=== PATIENT | male | born 1990 | race American Indian/Alaskan Native ===

== ENCOUNTER 2021-09-03 19:47 | Emergency (ER) | payer MEDICAID ==
[2021-09-03] MEDS ORDERED: ZIPRASIDONE MESYLATE 20 MG VIAL IM ONE ×2 (20:07→20:32)
[2021-09-03] MEDS ORDERED: diphenhydrAMINE 50 MG/ML VIAL IM ONE (20:46)
[2021-09-03] MEDS ORDERED: LORazepam 2 MG/ML VIAL IM ONE (20:47)
--- NOTE | 2021-09-03 20:49 | Emergency Department Report ---
ED Psych HPI - General Chief Complaint: Psych Stated Complaint: ABNORMAL BEHAVIOR Time Seen by Provider: 09/03/21 20:03 Source: patient, EMS Mode of arrival: Stretcher - History of Present Illness Initial Comments: Patient presents with having a psychotic episode. Patient was outside a psych facility and he was eating leaves off the trees and climbing the tree. History is limited due to patient's condition - Related Data Previous Rx's Medication Instructions Recorded Last Taken Type Mineral Oil/Petrolatum,White 3.5 gm OD Q1HR PRN #1 oint...g. 10/09/19 Unknown Rx [Refresh Lacri-Lube Ointment] haloperidoL [Haldol] 2 mg PO TID #60 tab 10/09/19 Unknown Rx Allergies Allergy/AdvReac Type Severity Reaction Status Date / Time No Known Allergies Allergy Unverified 10/06/19 20:13 ED Review of Systems ROS: Stated complaint: ABNORMAL BEHAVIOR Other details as noted in HPI Comment: Unobtainable due to pts medical conditions ED Past Medical Hx - Past Medical History Previous Medical History?: Yes Hx Hypertension: Yes Hx Psychiatric Treatment: Yes - Surgical History Past Surgical History?: No - Social History Smoking Status: Current Every Day Smoker Substance Use Type: None - Medications Home Medications: Home Medications Medication Instructions Recorded Confirmed Last Taken Type Mineral Oil/Petrolatum,White 3.5 gm OD Q1HR PRN #1 oint...g. 10/09/19 Unknown Rx [Refresh Lacri-Lube Ointment] haloperidoL [Haldol] 2 mg PO TID #60 tab 10/09/19 Unknown Rx ED Physical Exam - General Limitations: Altered Mental Status General appearance: alert, in no apparent distress - Head Head exam: Present: atraumatic, normocephalic - Eye Eye exam: Present: normal appearance - ENT ENT exam: Present: mucous membranes moist - Neck Neck exam: Present: normal inspection - Respiratory Respiratory exam: Present: normal lung sounds bilaterally. Absent: respiratory distress - Cardiovascular Cardiovascular Exam: Present: regular rate, normal rhythm. Absent: systolic murmur, diastolic murmur, rubs, gallop - GI/Abdominal GI/Abdominal exam: Present: soft, normal bowel sounds - Rectal Rectal exam: Present: deferred - Extremities Exam Extremities exam: Present: normal inspection - Back Exam Back exam: Present: normal inspection - Neurological Exam Neurological exam: Present: alert - Psychiatric Psychiatric exam: Present: agitated, anxious, manic - Skin Skin exam: Present: warm, dry, intact, normal color. Absent: rash ED Course Vital Signs 09/03/21 21:18 Temperature 97.6 F Pulse Rate 102 H Respiratory 20 Rate Blood Pressure 122/72 [Right] O2 Sat by Pulse 95 Oximetry ED Medical Decision Making - Lab Data Result diagrams: 09/03/21 21:18 09/03/21 21:18 Lab Results 09/03/21 09/03/21 09/03/21 Range/Units 21:18 21:18 21:18 WBC 7.3 (4.5-11.0) K/mm3 RBC 5.12 H (3.65-5.03) M/mm3 Hgb 13.4 (11.8-15.2) gm/dl Hct 42.5 (35.5-45.6) % MCV 83 L (84-94) fl MCH 26 L (28-32) pg MCHC 32 (32-34) % RDW 14.7 (13.2-15.2) % Plt Count 166 (140-440) K/mm3 Lymph % (Auto) 22.6 (13.4-35.0) % [place] % (Auto) 13.5 H (0.0-7.3) % Eos % (Auto) 2.5 (0.0-4.3) % Baso % (Auto) 0.5 (0.0-1.8) % Lymph # (Auto) 1.6 (1.2-5.4) K/mm3 [place] # (Auto) 1.0 H (0.0-0.8) K/mm3 Eos # (Auto) 0.2 (0.0-0.4) K/mm3 Baso # (Auto) 0.0 (0.0-0.1) K/mm3 Seg Neutrophils % 60.9 (40.0-70.0) % Seg Neutrophils # 4.4 (1.8-7.7) K/mm3 Sodium 141 (137-145) mmol/L Potassium 4.0 (3.6-5.0) mmol/L Chloride 103.8 (98-107) mmol/L Carbon Dioxide 27 (22-30) mmol/L Anion Gap 14 mmol/L BUN 12 (9-20) mg/dL Creatinine 0.7 L (0.8-1.3) mg/dL Estimated GFR > 60 ml/min BUN/Creatinine Ratio 17 % Glucose 99 (75-100) mg/dL Calcium 9.2 (8.4-10.2) mg/dL Salicylates < 0.3 L (2.8-20.0) mg/dL Acetaminophen (10.0-30.0) ug/mL 09/03/21 Range/Units 21:18 WBC (4.5-11.0) K/mm3 RBC (3.65-5.03) M/mm3 Hgb (11.8-15.2) gm/dl Hct (35.5-45.6) % MCV (84-94) fl MCH (28-32) pg MCHC (32-34) % RDW (13.2-15.2) % Plt Count (140-440) K/mm3 Lymph % (Auto) (13.4-35.0) % [place] % (Auto) (0.0-7.3) % Eos % (Auto) (0.0-4.3) % Baso % (Auto) (0.0-1.8) % Lymph # (Auto) (1.2-5.4) K/mm3 [place] # (Auto) (0.0-0.8) K/mm3 Eos # (Auto) (0.0-0.4) K/mm3 Baso # (Auto) (0.0-0.1) K/mm3 Seg Neutrophils % (40.0-70.0) % Seg Neutrophils # (1.8-7.7) K/mm3 Sodium (137-145) mmol/L Potassium (3.6-5.0) mmol/L Chloride (98-107) mmol/L Carbon Dioxide (22-30) mmol/L Anion Gap mmol/L BUN (9-20) mg/dL Creatinine (0.8-1.3) mg/dL Estimated GFR ml/min BUN/Creatinine Ratio % Glucose (75-100) mg/dL Calcium (8.4-10.2) mg/dL Salicylates (2.8-20.0) mg/dL Acetaminophen 5.0 L (10.0-30.0) ug/mL - Medical Decision Making Chief medical diagnosis: Psychotic episode Differential medical diagnosis: Homicidal ideation schizoaffective disorder, substance-induced mood disorder I will sign 1013 will get psych consult blood work and IM [place] Patient has been medically cleared Critical care attestation.: If time is entered above; I have spent that time in minutes in the direct care of this critically ill patient, excluding procedure time. ED Disposition Clinical Impression: Schizophrenia, acute Disposition: [address] [place] [address] Is pt being admited?: No Does the pt Need Aspirin: No Condition: Stable
[2021-09-03 21:55] LABS: Basophils % (Auto) 0.5 % (0.0-1.8); Blood Urea Nitrogen 12 mg/dL (9-20); Calcium 9.2 mg/dL (8.4-10.2); Eosinophils # (Auto) 0.2 K/mm3 (0.0-0.4); Eosinophils % (Auto) 2.5 % (0.0-4.3); Hematocrit 42.5 % (35.5-45.6); Hemoglobin 13.4 gm/dl (11.8-15.2); Hemolysis Index 7; Lymphocytes # (Auto) 1.6 K/mm3 (1.2-5.4); Lymphocytes % (Auto) 22.6 % (13.4-35.0); Mean Corpuscular HGB Conc 32 % (32-34); Mean Corpuscular Volume 83 fl (84-94); Monocytes % (Auto) 13.5 % (0.0-7.3); Platelet Count 166 K/mm3 (140-440); Red Blood Count 5.12 M/mm3 (3.65-5.03); Red Cell Distribution Width 14.7 % (13.2-15.2)
[2021-09-03 22:17] LABS: BUN/Creatinine Ratio 17
[2021-09-04] MEDS ORDERED: HALOPERIDOL LACTATE 5 MG/1 ML INJ IM PRN (08:02)
[2021-09-04] MEDS ORDERED: LORazepam 2 MG/ML VIAL IM PRN (08:02)
--- NOTE | 2021-09-04 08:06 | Event Note ---
Date: 09/04/21 The patient was evaluated in the emergency department for symptoms described in the history of present illness. He/she was evaluated in the context of the global COVID-19 pandemic, which necessitated consideration that the patient might be at risk for infection with the virus that causes COVID-19. Institutional protocols and algorithms that pertain to the evaluation of patients at risk for COVID-19 are in a state of rapid change based on information released by regulatory bodies including the CDC and federal and state organizations. These policies and algorithms were followed during the patient's care in the emergency department. Please note that these policies, procedures and recommendations changed on a rapid basis. Laboratory studies, vital signs, nursing documentation, ER documentation, and psychiatric documentation are reviewed and appreciated. Patient is awake and walking around the department. He is not responding to verbal de-escalation techniques or show of force. He is not violent or physically combative at this time, but will require medication with haloperidol and Ativan as he continues to wander and represents a danger to himself and other individuals. The patient was deemed medically suitable for psychiatric disposition and placement during his initial ER evaluation. The patient continues to remain medically suitable for psychiatric placement and disposition. He is currently pending psychiatric placement. The emergency room will follow along as the patient provides a urine sample, UDS, and Covid swab. However, these tests are not medically necessary for medical clearance. The tests are ordered in anticipation of the psychiatric team's requests and preferences Vital Signs 09/03/21 09/04/21 21:18 04:17 Temperature 97.6 F Pulse Rate 102 H 90 Respiratory 20 20 Rate Blood Pressure 122/72 123/75 [Right] O2 Sat by Pulse 95 99 Oximetry Lab Results 09/03/21 09/03/21 09/03/21 Range/Units 21:18 21:18 21:18 WBC 7.3 (4.5-11.0) K/mm3 RBC 5.12 H (3.65-5.03) M/mm3 Hgb 13.4 (11.8-15.2) gm/dl Hct 42.5 (35.5-45.6) % MCV 83 L (84-94) fl MCH 26 L (28-32) pg MCHC 32 (32-34) % RDW 14.7 (13.2-15.2) % Plt Count 166 (140-440) K/mm3 Lymph % (Auto) 22.6 (13.4-35.0) % [place] % (Auto) 13.5 H (0.0-7.3) % Eos % (Auto) 2.5 (0.0-4.3) % Baso % (Auto) 0.5 (0.0-1.8) % Lymph # (Auto) 1.6 (1.2-5.4) K/mm3 [place] # (Auto) 1.0 H (0.0-0.8) K/mm3 Eos # (Auto) 0.2 (0.0-0.4) K/mm3 Baso # (Auto) 0.0 (0.0-0.1) K/mm3 Seg Neutrophils % 60.9 (40.0-70.0) % Seg Neutrophils # 4.4 (1.8-7.7) K/mm3 Sodium 141 (137-145) mmol/L Potassium 4.0 (3.6-5.0) mmol/L Chloride 103.8 (98-107) mmol/L Carbon Dioxide 27 (22-30) mmol/L Anion Gap 14 mmol/L BUN 12 (9-20) mg/dL Creatinine 0.7 L (0.8-1.3) mg/dL Estimated GFR > 60 ml/min BUN/Creatinine Ratio 17 % Glucose 99 (75-100) mg/dL Calcium 9.2 (8.4-10.2) mg/dL Salicylates < 0.3 L (2.8-20.0) mg/dL Acetaminophen (10.0-30.0) ug/mL 09/03/21 Range/Units 21:18 WBC (4.5-11.0) K/mm3 RBC (3.65-5.03) M/mm3 Hgb (11.8-15.2) gm/dl Hct (35.5-45.6) % MCV (84-94) fl MCH (28-32) pg MCHC (32-34) % RDW (13.2-15.2) % Plt Count (140-440) K/mm3 Lymph % (Auto) (13.4-35.0) % [place] % (Auto) (0.0-7.3) % Eos % (Auto) (0.0-4.3) % Baso % (Auto) (0.0-1.8) % Lymph # (Auto) (1.2-5.4) K/mm3 [place] # (Auto) (0.0-0.8) K/mm3 Eos # (Auto) (0.0-0.4) K/mm3 Baso # (Auto) (0.0-0.1) K/mm3 Seg Neutrophils % (40.0-70.0) % Seg Neutrophils # (1.8-7.7) K/mm3 Sodium (137-145) mmol/L Potassium (3.6-5.0) mmol/L Chloride (98-107) mmol/L Carbon Dioxide (22-30) mmol/L Anion Gap mmol/L BUN (9-20) mg/dL Creatinine (0.8-1.3) mg/dL Estimated GFR ml/min BUN/Creatinine Ratio % Glucose (75-100) mg/dL Calcium (8.4-10.2) mg/dL Salicylates (2.8-20.0) mg/dL Acetaminophen 5.0 L (10.0-30.0) ug/mL
--- NOTE | 2021-09-04 11:07 | Consultation ---
History of Present Illness - Reason for Consult Consult date: 09/04/21 Reason for consult: Psychosis - History of Present Psychiatric Illness HPI: Patient presents with having a psychotic episode. Patient was outside a psych facility and he was eating leaves off the trees and climbing the tree. History is limited due to patient's condition. The patient was seen today. He is in the seclusion room. He is mumbling and confused. He appears very drowsy and is unable to be engaged in the interview. PAST PSYCHIATRIC HISTORY: Unable to assess PAST MEDICAL HISTORY: None reported or document Family Psychiatric History: None reported or documented SOCIAL HISTORY Unable to assess REVIEW OF SYSTEMS Unable to assess MENTAL STATUS EXAMINATION Unable to assess Assessment and Plan (1) Schizophrenia Treatment Plan 1013 Olanzapine 7.5mg po BID Doxepin 10mg po qhs Agree with Haldol and lorazepam prn Sitter: per primary Medical: per primary Disposition: Recommend acute psychiatric inpatient treatment. Will follow. Thanks Case staffed with Dr. Gu Medications and Allergies Allergies Allergy/AdvReac Type Severity Reaction Status Date / Time No Known Allergies Allergy Unverified 10/06/19 20:13 Home Medications Medication Instructions Recorded Confirmed Last Taken Type Mineral Oil/Petrolatum,White 3.5 gm OD Q1HR PRN #1 oint...g. 10/09/19 Unknown Rx [Refresh Lacri-Lube Ointment] haloperidoL [Haldol] 2 mg PO TID #60 tab 10/09/19 Unknown Rx Active Meds: Active Medications Haloperidol Lactate (Haloperidol Lactate 5 Mg/1 Ml Inj) 5 mg IM Q6HR PRN PRN Reason: Agitation Last Admin: 09/04/21 08:34 Dose: 5 mg Lorazepam (Lorazepam 2 Mg/Ml Vial) 2 mg IM Q4HR PRN PRN Reason: Agitation Last Admin: 09/04/21 08:34 Dose: 2 mg Mental Status Exam - Vital signs Last Vital Signs Temp 97.6 F 09/03/21 21:18 Pulse 90 09/04/21 04:17 Resp 20 09/04/21 04:17 BP 123/75 09/04/21 04:17 Pulse Ox 99 09/04/21 04:17 Results Result Diagrams: 09/03/21 21:18 09/03/21 21:18 Abnormal lab results 09/03/21 09/03/21 09/03/21 Range/Units 21:18 21:18 21:18 RBC 5.12 H (3.65-5.03) M/mm3 MCV 83 L (84-94) fl MCH 26 L (28-32) pg [place] % (Auto) 13.5 H (0.0-7.3) % [place] # (Auto) 1.0 H (0.0-0.8) K/mm3 Creatinine 0.7 L (0.8-1.3) mg/dL Salicylates < 0.3 L (2.8-20.0) mg/dL Acetaminophen (10.0-30.0) ug/mL 09/03/21 Range/Units 21:18 RBC (3.65-5.03) M/mm3 MCV (84-94) fl MCH (28-32) pg [place] % (Auto) (0.0-7.3) % [place] # (Auto) (0.0-0.8) K/mm3 Creatinine (0.8-1.3) mg/dL Salicylates (2.8-20.0) mg/dL Acetaminophen 5.0 L (10.0-30.0) ug/mL All other labs normal.
--- NOTE | 2021-09-04 18:41 | Emergency Department Report ---
Blank Doc - Documentation Documentation: Mr Vee is a 30-year-old male admitted to the ER with schizophrenia and has b een evaluated and seen by psychiatrist and deemed to be 1013. The plan is to continue patient home medication. No new symptoms reported today.
[2021-09-04] MEDS: DOXEPIN 10 MG CAP PO SCH (23:00)
--- NOTE | 2021-09-05 09:29 | Progress Note ---
Subjective - Reason for Consult Consult date: 09/05/21 Reason for consult: suicidal ideation - Chief Complaint Chief complaint: The patient was seen this morning. He continues to present with disorganized thinking. REVIEW OF SYSTEMS Unable to assess MENTAL STATUS EXAMINATION Unable to assess Assessment and Plan (1) Schizophrenia Treatment Plan Continue 1013 Continue Olanzapine 7.5mg po BID Continue Doxepin 10mg po qhs Agree with Haldol and lorazepam prn Sitter: per primary Medical: per primary Disposition: Recommend acute psychiatric inpatient treatment. Will follow. Thanks Case staffed with Dr. Gu Medications and Allergies Mental Status Exam - Vital signs Last Vital Signs Temp 97.6 F 09/03/21 21:18 Pulse 90 09/04/21 04:17 Resp 20 09/04/21 04:17 BP 123/75 09/04/21 04:17 Pulse Ox 99 09/05/21 06:28
[2021-09-05 10:31] LABS: Amphetamine Screen,Urine Negative; Benzodiazepines Screen,Urine Negative; Cannabinoid Screen,Urine Negative; Cocaine Screen,Urine Negative; Methadone Screen,Urine Negative; Opiate Screen,Urine Negative
--- NOTE | 2021-09-05 12:21 | Event Note ---
Date: 09/05/21 S: No events reported overnight O: Vital Signs - 8 hr 09/05/21 09/05/21 06:28 12:40 Temperature 97.8 F Pulse Rate 76 Respiratory 16 Rate Blood Pressure 142/90 [Right] O2 Sat by Pulse 99 98 Oximetry 8: Schizophrenia P: 1013/awaiting inpatient psych
[2021-09-05] MEDS: DOXEPIN 10 MG CAP PO SCH (22:25)
--- NOTE | 2021-09-06 10:02 | Progress Note ---
Subjective - Reason for Consult Consult date: 09/06/21 Reason for consult: psychosis - Chief Complaint Chief complaint: The patient was seen this morning. He is calm, alert and oriented to self. No aggressive behaviors reported. REVIEW OF SYSTEMS Unable to assess MENTAL STATUS EXAMINATION Unable to assess Assessment and Plan (1) Schizophrenia Treatment Plan [place] 1013 Continue Olanzapine 7.5mg po BID Continue Doxepin 10mg po qhs Sitter: per primary Medical: per primary Disposition: Do not recommend acute psychiatric inpatient treatment. Fire Prevention Engineer will provide patient with psychiatric outpatient resources. Will sign off. Thanks Case staffed with Dr. uG Medications and Allergies Mental Status Exam - Vital signs Last Vital Signs Temp 98.3 F 09/05/21 20:08 Pulse 74 09/05/21 20:08 Resp 20 09/05/21 20:08 BP 120/82 09/05/21 20:08 Pulse Ox 98 09/05/21 20:08
--- NOTE | 2021-09-06 11:24 | Event Note ---
Date: 09/06/21 vss , medically cleared , no events overnight assessed by psych , D/C 1013 awaiting d/C
[2021-09-06 19:40] VITALS: BP 125/65
== END 2021-09-06 19:45 ==
LOC: EEVIPCON 19:47 → ED 19:47
DX: F20.9 Schizophrenia, unspecified (principal); I10 Essential (primary) hypertension; F17.200 Nicotine dependence, unspecified, uncomplicated; Z20.822 Contact with and (suspected) exposure to COVID-19
CPT/HCPCS: 36415; 80048; 85025; 96372; 99285; J1200; J1630; J2060; J3486; 80320; G0480